=== PATIENT | male | born 1995 | race Hispanic/Latino ===

== ENCOUNTER 2025-05-08 12:46 | Emergency (ER) | payer OTHER | END 2025-05-08 16:50 | disposition home or self-care (01) | LOC: ERS 12:46 | DX: T53 Toxic effect of halogen derivatives of aliphatic and aromatic hydrocarbons (principal); T20.50XA Corrosion of first degree of head, face, and neck, unspecified site, initial encounter; Y99.0 Civilian activity done for income or pay | CPT/HCPCS: 99282 ==